=== PATIENT | male | born 1945 | race Caucasian/White ===

== ENCOUNTER 2019-04-09 08:08 | Day surgery (SDC) | payer MEDICARE, OTHER ==
[~2019-04-09 08:08] MED LIST: Buffered Lidocaine 1% SYRIN* 1 ML/SYRINGE INTRADERM ONE; Lactated Ringers 1000 ML Bag* 1,000 ML IV SCH; Lidocaine 1% INJ* 10 MG/ML 30 ML SDV ONE
--- NOTE | 2019-04-09 10:23 | OP ---
DATE OF OPERATION: 04/09/19 [facility] DATE OF : 43 SURGEON: Destiney Choi MD SEED CLEANING MACHINE OPERATOR: GLENROY Schaffer ANESTHESIA: Local. PRE-OP DIAGNOSIS: Right carpal tunnel syndrome. POST-OP DIAGNOSIS: Right carpal tunnel syndrome. OPERATIVE PROCEDURE: Right carpal tunnel release. ESTIMATED BLOOD LOSS: Zero. TOURNIQUET TIME: Approximately 10 minutes. INDICATION FOR PROCEDURE: Chris is a 73-year-old male who has numbness and tingling in the median nerve distribution of his right hand as well as EMG evidence of right carpal tunnel syndrome, severe. He presents for right carpal tunnel release. DESCRIPTION OF PROCEDURE: The patient was brought to the operating room, was given a local anesthetic in the palm of his right hand. The skin of his right hand and forearm was prepped and draped in the usual sterile fashion. 1% lidocaine was used as the local anesthetic. The hand and forearm were exsanguinated and the tourniquet elevated to 250 mmHg. A longitudinal incision was made in the palm in line with the ring finger. We dissected through the subcutaneous tissue down to the transverse carpal ligament. The ligament was divided sharply with a knife and then more proximally with the scissors. The nerve was dissected free from surrounding tissue, and there was an area of moderate compression at the mid portion of the ligament. The wound was irrigated and the skin edges were reapproximated with 4-0 nylon suture. The wound was dressed with Xeroform, 4x4s, Webril, and an Darnell wrap. The patient tolerated the procedure well and was brought to the recovery room in good condition. [id number]/[facility] #: [id number] [facility]ENTER[facility]
[2019-04-09 10:26] VITALS: BP 136/75
== END 2019-04-09 10:23 | disposition home or self-care (01) ==
LOC: OREAST 08:08
PROVIDERS: ATTEND Orthopaedic Surgery
DX: G56.01 Carpal tunnel syndrome, right upper limb (principal); G20 Parkinson's disease; Z87.891 Personal history of nicotine dependence